=== PATIENT | female | born 1965 | race Caucasian/White ===

== ENCOUNTER 2018-04-08 06:33 | Day surgery (SDC) | payer BC ==
[2018-04-08] MEDS ORDERED: SOD CHLORIDE 0.9% 1,000 ML IV (07:00)
[2018-04-08] MEDS ORDERED: CEFAZOLIN 1 GM/50 ML (PMX) 50 ML IVPB (07:00)
[2018-04-08] MEDS ORDERED: CEFAZOLIN 1 GM INJ (07:00)
[2018-04-08 07:40] LABS: ADD MAN DIFF? NO
[2018-04-08 07:42] LABS: BASOPHILS % 0.5 % (0.0-2.0); EOSINOPHILS # 0.1 10^3/ul (0.0-0.5); EOSINOPHILS % 3.1 % (0.0-7.0); HEMATOCRIT 42.4 % (37.0-47.0); HEMOGLOBIN 14.1 g/dl (12.0-16.0); LYMPHOCYTES # 1.3 10^3/ul (0.8-2.9); LYMPHOCYTES % 32.6 % (15.0-51.0); MEAN CORPUSCULAR HEMOGLOBIN 27.8 pg (29.0-33.0); MEAN CORPUSCULAR HGB CONC 33.3 g/dl (32.0-37.0); MEAN CORPUSCULAR VOLUME 83.5 fl (82.0-101.0); MEAN PLATELET VOLUME 11.5 fl (7.4-10.4); MONOCYTE # 0.4 10^3/ul (0.3-0.9); MONOCYTES % 9.6 % (0.0-11.0); NEUTROPHIL # 2.1 10^3/ul (1.6-7.5); NEUTROPHILS % 53.7 % (39.0-77.0); PLATELET COUNT 215 10^3/UL (140-415); RED BLOOD COUNT 5.08 10^6/ul (4.20-5.40); RED CELL DISTRIBUTION WIDTH 12.2 % (11.5-14.5)
[2018-04-08 07:42] LABS: WHITE BLOOD COUNT 3.8 10^3/ul (4.8-10.8)
[2018-04-08 07:46] LABS: HOLD TRANSMISSIONS 1
[2018-04-08 08:01] LABS: INR 1.04; PROTIME 13.7 Sec (11.9-14.9); PT RATIO 1.1
[2018-04-08 08:02] LABS: ANION GAP 9 (5-13); BLOOD UREA NITROGEN 16 mg/dl (7-20); CALCIUM 10.1 mg/dl (8.4-10.2); CARBON DIOXIDE 29 mmol/L (21-31); CHLORIDE 103 mmol/L (97-110); CREATININE 0.61 mg/dl (0.44-1.00); Estimated GFR > 60 mL/min (>60); GLUCOSE 98 mg/dl (70-220); POTASSIUM 4.2 mmol/L (3.5-5.1); SODIUM 141 mmol/L (135-144)
[2018-04-08] MEDS ORDERED: LIDOCAINE 2% (SDV) 5 ML INJ (08:05)
[2018-04-08] MEDS ORDERED: PROPOFOL 40 ML (08:05)
[2018-04-08] MEDS ORDERED: FENTAnyl 50 MCG/ML VIAL (08:05)
[2018-04-08] MEDS ORDERED: MIDAZOLAM 1 MG/ML 2 ML INJ (08:05)
[2018-04-08] MEDS ORDERED: ONDANSETRON 4 MG INJ (08:06)
[2018-04-08] MEDS ORDERED: DEXAMETHASONE 4 MG/ML 1 ML INJ (08:06)
[2018-04-08] MEDS ORDERED: FAMOTIDINE 20 MG INJ (08:06)
[2018-04-08] MEDS ORDERED: LIDOCAINE 1%/EPI 30 ML INJ (08:28)
[2018-04-08] MEDS ORDERED: BUPIVACAINE 0.25% (MPF) 30 ML INJ (08:28)
[2018-04-08] MEDS ORDERED: OXYCODONE/ACETAMINOPHEN (5/325) TAB PO ×2 (09:00)
[2018-04-08] MEDS ORDERED: LABETALOL HCL 20MG INJ IV (09:00)
[2018-04-08] MEDS ORDERED: MEPERIDINE 25 MG INJ IV (09:00)
[2018-04-08] MEDS ORDERED: ONDANSETRON 4 MG INJ IV ×2 (09:00→10:00)
[2018-04-08] MEDS ORDERED: DIPHENHYDRAMINE 50 MG INJ IV (09:00)
[2018-04-08] MEDS ORDERED: HYDROmorphONE 1 MG/5 ML IV SYRINGE IV ×2 (09:00)
[2018-04-08] MEDS ORDERED: FENTAnyl 50 MCG/ML VIAL IV ×2 (09:00)
[2018-04-08] MEDS ORDERED: ALBUTEROL 0.083% (NEB) 2.5 MG/3 ML AMP HHN (09:00)
[2018-04-08] MEDS ORDERED: morphine (1 MG/ML) 10ML SYRINGE IV ×2 (09:00)
[2018-04-08] MEDS: LIDOCAINE 1%/EPI 30 ML INJ INJ (09:05)
[2018-04-08] MEDS: BUPIVACAINE 0.25% (MPF) 10 ML 10 ML VIAL INJ (09:05)
[2018-04-08] MEDS ORDERED: EPHEDrine SULFATE 50 MG/5 ML SYG (09:32)
[2018-04-08] MEDS ORDERED: IBUPROFEN 600 MG TAB PO (10:00)
[2018-04-08 10:01] LABS: PARTIAL THROMBOPLASTIN TIME 42.2 Sec (23.0-35.0)
== END 2018-04-08 11:10 | disposition home or self-care (01) ==
LOC: SDS 06:33
DX: D17.0 Benign lipomatous neoplasm of skin and subcutaneous tissue of head, face and neck (principal)
CPT/HCPCS: 21014; 71045; 80048; 85025; 85610; 85730; 88307; 93005